=== PATIENT | female | born 1975 | race American Indian/Alaskan Native ===

== ENCOUNTER 2020-03-29 00:25 | Emergency (ER) | payer SELFPAY ==
[2020-03-29 02:20] VITALS: BP 141/88
[2020-03-29] MEDS ORDERED: traMADol 50 MG TAB PO ONE (08:31)
--- NOTE | 2020-03-29 10:09 | Emergency Department Report ---
ED Back Pain/Injury HPI - General Chief Complaint: Extremity Injury, Lower Stated Complaint: LOWER BACK PAINS KNEE PAINS RT Time Seen by Provider: 03/29/20 07:30 Source: patient Limitations: No Limitations - History of Present Illness Initial Comments: 44-year-old female complaining of pain to her lower back radiating down her right leg x1 year, she denies any falls or injuries . She reports urinary frequency for 1 day. Patient denies any other complaints she denies chest pain shortness of breath no abdominal pain no fever cough she reports a history of having water on her right knee. But currently is not complaining of knee pain MD Complaint: back pain Similar Symptoms Previously: Yes (Ongoing for 1 year) Radiation: right leg Severity scale (0 -10): 7 Quality: sharp, aching Consistency: constant Improves With: none Worsens With: walking Associated Symptoms: denies other symptoms. denies: weakness, numbness, difficulty walking, cough, difficulty urinating, fever/chills, constipation, headaches, abdominal pain, loss of appetite, rash, seizure, shortness of breath, other - Related Data Previous Rx's Medication Instructions Recorded Last Taken Type Cyclobenzaprine [Flexeril] 10 mg PO TID PRN #12 tablet 03/29/20 Unknown Rx Ibuprofen [Motrin] 800 mg PO Q8HR PRN #20 tablet 03/29/20 Unknown Rx Allergies Allergy/AdvReac Type Severity Reaction Status Date / Time No Known Allergies Allergy Verified 03/29/20 08:39 ED Review of Systems ROS: Stated complaint: LOWER BACK PAINS KNEE PAINS RT Other details as noted in HPI ED Past Medical Hx - Past Medical History Previous Medical History?: No - Surgical History Past Surgical History?: No - Social History Smoking Status: Current Every Day Smoker Substance Use Type: None - Medications Home Medications: Home Medications Medication Instructions Recorded Confirmed Last Taken Type Cyclobenzaprine [Flexeril] 10 mg PO TID PRN #12 tablet 03/29/20 Unknown Rx Ibuprofen [Motrin] 800 mg PO Q8HR PRN #20 tablet 03/29/20 Unknown Rx ED Physical Exam - General Limitations: No Limitations General appearance: alert, in no apparent distress - Head Head exam: Present: atraumatic - Eye Eye exam: Present: normal appearance - ENT ENT exam: Present: normal exam - Neck Neck exam: Present: normal inspection, full ROM - Respiratory Respiratory exam: Present: normal lung sounds bilaterally - Cardiovascular Cardiovascular Exam: Present: regular rate, normal heart sounds - Extremities Exam Extremities exam: Present: normal inspection, full ROM, normal capillary refill, other (straight leg raises bilaterally 90 degrees does not iniate pain) - Back Exam Back exam: Present: normal inspection. Absent: paraspinal tenderness, vertebral tenderness - Neurological Exam Neurological exam: Present: alert, oriented X3 - Psychiatric Psychiatric exam: Present: normal affect. Absent: agitated - Skin Skin exam: Present: warm, dry, intact ED Course Vital Signs 03/29/20 02:16 Temperature 98.3 F Pulse Rate 94 H Respiratory 18 Rate Blood Pressure 141/88 O2 Sat by Pulse 98 Oximetry ED Medical Decision Making - Medical Decision Making Chronic back pain radiating down the right leg for over a year. Urine negative for blood neg infection infection. Pain decreases with tramadol. Follow up with PCP Critical Care Time: No Critical care attestation.: If time is entered above; I have spent that time in minutes in the direct care of this critically ill patient, excluding procedure time. ED Disposition Clinical Impression: Back pain Qualifiers: Back pain location: low back pain Chronicity: chronic Back pain laterality: right Sciatica presence: with sciatica Sciatica laterality: sciatica of right side Qualified Code(s): M54.41 - Lumbago with sciatica, right side Disposition: TO HOME OR SELFCARE Is pt being admited?: No Does the pt Need Aspirin: No Condition: Stable Instructions: Sciatica (ED), Back Pain (ED), Core Strengthening Exercises (GEN) Additional Instructions: Your urine test shows no sign of infection. Follow-up with your doctor in 3 to 5 days. Or return to the emergency room for worsening pain inability to walk or loss of the ability to control your bowels or your bladder Prescriptions: Cyclobenzaprine [Flexeril] 10 mg PO TID PRN #12 tablet PRN Reason: Muscle Spasm Ibuprofen [Motrin] 800 mg PO Q8HR PRN #20 tablet PRN Reason: Pain , Severe (7-10) Referrals: PRIMARY MD CORAZON [Primary Care Provider] - 3-5 Days PRAVIN RAMSEY MD [Staff Physician] - 3-5 Days Time of Disposition: 11:10
[2020-03-29 10:12] LABS: Bacteria,Urine 1+ /HPF (Negative); Bilirubin,Urine NEG (Negative); Blood,Urine NEG (Negative); Color,Urine Yellow (Yellow); HCG Qualitative,Urine Negative (Negative); Mucus,Urine FEW /HPF; Protein,Urine <15 mg/dL mg/dL (Negative)
== END 2020-03-29 11:24 | disposition home or self-care (01) ==
LOC: ED 00:25
DX: M54.5 Low back pain (principal); F17.200 Nicotine dependence, unspecified, uncomplicated
CPT/HCPCS: 81001; 81025; 99283